=== PATIENT | female | born 1990 ===

== ENCOUNTER 2023-08-20 21:16 | Emergency (ER) | payer OTHER ==
[~2023-08-20] VITALS: Ht 165.1 cm; Wt 60.1 kg
[2023-08-20] MEDS ORDERED: NEURONTIN300 MG PO (21:34)
[2023-08-20] MEDS ORDERED: ZANAFLEX4 M1 PO (21:35)
[2023-08-20] MEDS ORDERED: MUPIROCIN22 GM TOP (21:37)
[2023-08-20] MEDS ORDERED: TRIAMCINOLONE A15 G3 TOP (21:37)
[2023-08-20] MEDS ORDERED: MUPIROCIN 22 GM TUBE ONE (21:43)
[2023-08-20] MEDS ORDERED: MUPIROCIN 22 GM TUBE TOP ONE (21:45)
[2023-08-20 21:50] VITALS: BP 130/86
== END 2023-08-20 21:50 | disposition home or self-care (01) ==
LOC: ED 21:16
DX: S40.862A Insect bite (nonvenomous) of left upper arm, initial encounter (principal); S40.861A Insect bite (nonvenomous) of right upper arm, initial encounter; S80.862A Insect bite (nonvenomous), left lower leg, initial encounter; S80.861A Insect bite (nonvenomous), right lower leg, initial encounter; W57.XXXA Bitten or stung by nonvenomous insect and other nonvenomous arthropods, initial encounter; Z88.1 Allergy status to other antibiotic agents; Z79.899 Other long term (current) drug therapy
CPT/HCPCS: 99282

== ENCOUNTER 2023-08-27 11:44 | Emergency (ER) | payer MEDICAID ==
[~2023-08-27] VITALS: Ht 165.1 cm; Wt 59.0 kg
[~2023-08-27 11:44] MED LIST: MUPIROCIN22 GM TOP; NEURONTIN300 MG PO; TRIAMCINOLONE A15 G3 TOP; ZANAFLEX4 M1 PO
[2023-08-27] MEDS ORDERED: RIZATRIPTAN5 M1 PO (14:10)
[2023-08-27] MEDS ORDERED: METHADONE HCL10 MG PO (14:10)
[2023-08-27] MEDS ORDERED: METHADONE10 MG/5 ML PO (14:14)
[2023-08-27] MEDS ORDERED: METHADONE HCL 10 MG TAB PO ONE (14:15)
[2023-08-27 14:36] VITALS: BP 125/72
== END 2023-08-27 14:40 | disposition home or self-care (01) ==
LOC: ED 11:44
DX: Z76.0 Encounter for issue of repeat prescription (principal); F11.20 Opioid dependence, uncomplicated; Z88.1 Allergy status to other antibiotic agents; Z79.899 Other long term (current) drug therapy
CPT/HCPCS: 99281

== ENCOUNTER 2023-10-01 19:23 | Emergency (ER) | payer OTHER ==
[~2023-10-01] VITALS: Ht 165.1 cm; Wt 60.0 kg
--- OUTSIDE RECORDS SUMMARY | ~2023-10-01 | XMS | Continuity of Care Document ---
Demographics + + + | Address | [address] | | | [place] [address] | + + + | Preferred Language | Unknown | + + + | Marital Status | Never | + + + | Gnosticism Affiliation | Unknown | + + + | Race | Unknown | + + + | Ethnic Group | Unknown | + + + Author + + + | Author | [facility] | + + + | Organization | [facility] | + + + | Address | [address] | | | [place] [address] | + + + | Phone | | + + + Care Team Providers + + + + | Care Flap Lining Binder Name | Role | Phone | + + + + Unavailable | Unavailable | + + + + Allergies No information. Encounters No information. Functional Status No information. Immunizations No information. Medications No information. Problems + + + + | date | description | facility | + + + + | 2023-08-23 19:04:06 | Opioid use, unspecified, | [facility] | | | uncomplicated | | + + + + | 2023-08-23 19:04:06 | Post-traumatic stress | [facility] | | | disorder, unspecified | | + + + + | 2023-08-31 22:14:06 | Opioid use, unspecified, | [facility] | | | uncomplicated | | + + + + Procedures No information. Results/Labs No information. Social History +--------+ + + | date | description | facility | +--------+ + + Vital Signs No information."
[~2023-10-01 19:23] MED LIST changes: +METHADONE HCL10 MG PO; +METHADONE10 MG/5 ML PO; +RIZATRIPTAN5 M1 PO
[2023-10-01 21:49] LABS: PREGNANCY TEST, URINE NEGATIVE (NEG)
[2023-10-01 22:17] LABS: AMPHETAMINES, URINE NEGATIVE (NEGATIVE); BARBITURATES, URINE NEGATIVE (NEGATIVE); BENZODIAZEPINE, URINE NEGATIVE (NEGATIVE); BUPRENORPHINE, URINE NEGATIVE (NEGATIVE); CANNABINOID, URINE NEGATIVE (NEGATIVE); COCAINE, URINE NEGATIVE (NEGATIVE); ECSTASY, URINE NEGATIVE (NEGATIVE); FENTANYL, URINE NEGATIVE (NEGATIVE); METHADONE, URINE POSITIVE (NEGATIVE); OPIATES, URINE NEGATIVE (NEGATIVE); OXYCODONE, URINE NEGATIVE (NEGATIVE); PHENCYCLIDINE, URINE NEGATIVE (NEGATIVE)
[2023-10-01 23:02] VITALS: BP 140/78
== END 2023-10-01 23:03 | disposition home or self-care (01) ==
LOC: ED 19:23
PROVIDERS: Emergency Medicine
DX: Z76.0 Encounter for issue of repeat prescription (principal); Z79.891 Long term (current) use of opiate analgesic; Z79.899 Other long term (current) drug therapy; Z88.1 Allergy status to other antibiotic agents
CPT/HCPCS: 80307; 84703; 99281